=== PATIENT | male | born 1950 ===

== ENCOUNTER 2017-04-12 06:56 | Day surgery (SDC) | payer MEDICARE, MEDICAID ==
[2017-04-12 07:23] VITALS: BMI 22.8
[2017-04-12] MEDS ORDERED: Propofol 10 mg/ml Inj (20 ML) ONE ×2 (09:42→10:13)
[2017-04-12 10:43] VITALS: TEMP 98.6; O2SAT 100
[2017-04-12 11:24] VITALS: BP 107/60; PULSE 55; RESP 14
== END 2017-04-12 12:00 | disposition home or self-care (01) ==
LOC: C.ENDO 06:56
PROVIDERS: ATTEND Internal Medicine Gastroenterology
DX: Z12.11 Encounter for screening for malignant neoplasm of colon (principal); D12.0 Benign neoplasm of cecum; D12.4 Benign neoplasm of descending colon; K64.1 Second degree hemorrhoids; K59.00 Constipation, unspecified; I10 Essential (primary) hypertension; E78.5 Hyperlipidemia, unspecified; H40.9 Unspecified glaucoma; F17.210 Nicotine dependence, cigarettes, uncomplicated; Z98.890 Other specified postprocedural states; Z79.899 Other long term (current) drug therapy

== ENCOUNTER 2017-05-11 07:36 | Day surgery (SDC) | payer MEDICARE, MEDICAID ==
[2017-05-11 07:59] VITALS: BMI 22.9
[2017-05-11] MEDS ORDERED: Methylene Blue 10 mg/ml (1ml) Inj ONE (08:44)
[2017-05-11] MEDS ORDERED: Methylene Blue 10 mg/mL(10ml) IV ONE (08:54)
[2017-05-11] MEDS ORDERED: Propofol 10 mg/ml Inj (20 ML) ONE ×3 (10:00→10:32)
[2017-05-11 11:13] VITALS: TEMP 97.1
[2017-05-11 11:47] VITALS: BP 126/64; PULSE 64; RESP 12; O2SAT 98
--- NOTE | 2017-05-11 12:22 | CP.SDSHP ---
Same Day Surgery H & P - History Proposed Procedure: Colonoscopy/EMR Pre-Op Diagnosis: Colon polyp - Previous Medical/Surgical History Previous Surgical History: colonoscopy - Allergies Allergies: Allergies No Known Allergies Allergy (Verified 05/11/17 07:58) - Physical Exam General Appearance: nl Vital Signs: Vital Signs 05/11/17 05/11/17 05/11/17 08:07 09:57 10:59 Temperature 98 F 98 F 97.1 F L Pulse Rate 65 65 63 Respiratory 19 19 19 Rate Blood Pressure 121/71 121/71 117/63 O2 Sat by Pulse 100 100 98 Oximetry 05/11/17 05/11/17 11:13 11:28 Temperature Pulse Rate 62 64 Respiratory 11 L 12 Rate Blood Pressure 117/63 126/64 O2 Sat by Pulse 99 98 Oximetry Mental Status: Alert & Oriented x3 Neuro: WNL Heart: WNL Lungs: WNL GI: WNL - {Optional Preform as Required} Abdomen: WNL Rectal: WNL - Impression Impression: Colon polyp Pt. Evaluated Today:Candidate for Anesthesia & Procedure: Yes - Date & Time Date: 05/11/17 Time: 08:00 Short Stay Discharge - Short Stay Discharge Admitting Diagnosis/Reason for Visit: DESCENDING COLON POLYP Disposition: HOME/ ROUTINE
== END 2017-05-11 12:00 | disposition home or self-care (01) ==
LOC: C.ENDO 07:36
PROVIDERS: ATTEND Internal Medicine
DX: D12.4 Benign neoplasm of descending colon (principal)
CPT/HCPCS: 45385; 88305; J2001; J2704; J3010; Q9968

== ENCOUNTER 2017-12-27 10:57 | Day surgery (SDC) | payer MEDICARE, MEDICAID ==
[2017-12-27] MEDS ORDERED: Lactated Ringer's 1,000 ML IV ONE (13:05)
[2017-12-27] MEDS ORDERED: Propofol 10 mg/ml Inj (20 ML) ONE ×2 (13:06→13:31)
[2017-12-27] MEDS ORDERED: Midazolam 2 MG/2 ML VIAL ONE (13:36)
[2017-12-27 14:06] VITALS: TEMP 97.9
[2017-12-27 14:10] VITALS: O2SAT 100
[2017-12-27 14:29] VITALS: PULSE 60; RESP 18
[2017-12-27 15:09] VITALS: BP 135/70
== END 2017-12-27 15:08 | disposition home or self-care (01) ==
LOC: C.ENDO 10:57
PROVIDERS: ATTEND Internal Medicine Gastroenterology
DX: Z12.11 Encounter for screening for malignant neoplasm of colon (principal); R10.13 Epigastric pain; Z86.010 Personal history of colon polyps; K29.50 Unspecified chronic gastritis without bleeding; K64.1 Second degree hemorrhoids; I10 Essential (primary) hypertension; E78.5 Hyperlipidemia, unspecified; D12.0 Benign neoplasm of cecum; K63.5 Polyp of colon

== ENCOUNTER 2018-01-07 09:05 | Day surgery (SDC) | payer MEDICARE, MEDICAID ==
[2018-01-07 09:39] VITALS: O2SAT 100
[2018-01-07] MEDS ORDERED: Propofol 10 mg/ml Inj (20 ML) ONE ×2 (10:17)
[2018-01-07 12:26] VITALS: PULSE 68
[2018-01-07 13:14] VITALS: BP 129/69; RESP 21; TEMP 98.6
== END 2018-01-07 11:55 | disposition home or self-care (01) ==
LOC: C.ENDO 09:05
PROVIDERS: ATTEND Internal Medicine
DX: K22.8 Other specified diseases of esophagus (principal); I85.00 Esophageal varices without bleeding; K29.70 Gastritis, unspecified, without bleeding
CPT/HCPCS: 43239; J2704; J2765; J3010; J7070